=== PATIENT | male | born 1950 | race Caucasian/White ===

== ENCOUNTER 2021-06-07 06:18 | Inpatient (IN) | payer OTHER, SELFPAY ==
[2021-06-07] VITALS (7 sets, daily range): BP systolic 133–153; BP diastolic 62–82; PULSE 63–85; RESP 14–18; TEMP 36.6–37.4; O2SAT 96–99; BMI 33.7
--- NOTE | ~2021-06-07 | CT_ITS ---
EXAMINATION: CT abdomen pelvis w con INDICATION: Chest pain, elevated lipase TECHNIQUE: Computed tomographic images of the abdomen and pelvis were obtained after the administrati on of 100 cc of Omnipaque 350 intravenous contrast. The dose-length product (DLP) was 1119.72 mGy-cm. Automated exposure control and iterative reconstruction technique were employed. COMPARISON: None available FINDINGS: The lung bases are clear. The heart size is normal. The liver, gallbladder, and left adrena l gland are normal. There is a 2.1 cm soft tissue density mass in the right adrenal gland. Punctate c alcifications in an otherwise normal spleen likely represent healed granulomatous disease. There is s ubtle fat stranding near the head of the pancreas. Peripelvic cysts are noted in the left kidney. The kidneys are otherwise unremarkable. Colonic diverticulosis is present without evidence of diverticul itis. There is high density material in the otherwise normal appendix. No pathologically enlarged abd ominal or pelvic lymph nodes are identified. There is no free intraperitoneal gas or evidence of lauern l obstruction. There is moderate lumbar spondylosis. There is a small fat-containing umbilical hernia . IMPRESSION: 1. Findings consistent with retained, likely interstitial edematous. 2. 2.1 cm mass of the right adrenal gland. No prior imaging is currently available for comparison. Fo llow-up with nonemergent adrenal protocol CT is recommended. Reviewed, dictated and finalized at location A. IMPRESSION: 1. Findings consistent with retained, likely interstitial edematous. 2. 2.1 cm mass of the right adrenal gland. No prior imaging is currently availa ble for comparison. Follow-up with nonemergent adrenal protocol CT is recommend ed.
--- NOTE | ~2021-06-07 | US_ITS ---
EXAMINATION: US abdomen limited DATE: 06/07/2021 14:10 INDICATION: Right upper quadrant pain TECHNIQUE: Multiple grayscale and Doppler ultrasound images of the abdomen were obtained. COMPARISON: None available FINDINGS: Bowel gas obscures visualization of the pancreas. The liver is normal with normal echogenic ity and echotexture. No surface nodularity. Normal hepatopetal flow in the main portal vein. The gall bladder is normal with no abnormal wall thickening, pericholecystic fluid or stones. The normal commo n bile duct measures 5 mm. There was no sonographic Roblero sign. IMPRESSION: 1. Normal sonographic study of the gallbladder. Reviewed, dictated and finalized at location A.
--- NOTE | ~2021-06-07 | XR_ITS ---
EXAMINATION: XR chest 2V DATE: 06/07/2021 06:36 INDICATION: Chest pain TECHNIQUE: PA and lateral views of the chest are obtained. COMPARISON: 01/27/2013 FINDINGS: The lungs are free of acute opacities. There is no pleural effusion or pneumothorax. The ca rdiomediastinal silhouette is normal. There is moderate thoracic spondylosis. IMPRESSION: 1. No acute cardiopulmonary abnormality. Reviewed, dictated and finalized at location A.
--- NOTE | 2021-06-07 06:23 | ECG_ITS ---
Measurements Intervals [place] Rate: 77 P: 51 WV: 156 QRS: 39 QRSD: 97 T: 45 QT: 372 QTc: 423 Interpretive Statements SINUS RHYTHM NORMAL ECG NO PREVIOUS ECG AVAILABLE FOR COMPARISON Electronically Signed On 06-07-2021 15:46:06 CDT by Robert Blanton M.D.
[2021-06-07 06:51] LABS: Basophils Absolute Auto 0.1 K/mm3 (0.0-0.1); Basophils Percent Auto 0.4 % (0.2-1.2); Eosinophils Absolute Auto 0.1 K/mm3 (0-0.3); Hemoglobin 16.5 g/dL (14.0-18.0); Immature Granulocyte Absolute 0.02 K/mm3 (0.00-0.031); Immature Granulocyte Percent A 0.2 % (0-0.5); Lymphocytes Absolute Auto 1.55 K/mm3 (0.9-3.2); Lymphocytes Percent Auto 12.3 % (18.3-44.2); Mean Corpuscular HGB Conc 35.9 g/dl (32-36); Mean Corpuscular Hemoglobin 33.2 pg (26-34); Mean Corpuscular Volume 92.6 fl (80-100); Mean Platelet Volume 9.3 fl (7.4-10.4); Monocytes Absolute Auto 0.9 K/mm3 (0.1-0.6); Monocytes Percent Auto 6.8 % (2.6-8.5); Neutrophils Percent Auto 79.3 % (45.5-73.1); Platelet Count Result 198 k/mm3 (150-375); Red Blood Count 4.97 M/mm3 (4.6-6.20); Red Cell Distribution Width 12.3 % (11.5-14.5); White Blood Count 12.6 K/mm3 (4.5-10.0)
[2021-06-07] MEDS: ASPIRIN 81 MG CHEWABLE TABLET 324 MG PO (06:57)
[2021-06-07 07:00] LABS: Alanine Aminotransferase 24 U/L (4-50); Albumin Level 4.4 g/dL (3.5-5.1); Alkaline Phosphatase 55 U/L (38-126); Anion Gap 8 mmol/L (8-16); Aspartate Amino Transferase 29 U/L (17-59); Bilirubin,Total 0.9 mg/dL (0.2-1.3); Blood Urea Nitrogen 18 mg/dL (9-20); Calcium 8.9 mg/dL (8.4-10.2); Carbon Dioxide 26 mmol/L (22-30); Chloride 100 mmol/L (98-107); Estimated CRCL calculation 82 ml/min; Estimated Glomerular Filt Rate > 60; Glucose 125 mg/dL (65-110); Lipase 456 U/L (23-300); Potassium 4.1 mmol/L (3.4-5.0); Sodium 134 mmol/L (137-145)
[2021-06-07 07:07] LABS: Prothrombin Time 13.2 Seconds (11.1-14.7)
[2021-06-07 07:08] LABS: Partial Thromboplastin Time 27.5 SECONDS (22.3-36.8)
[2021-06-07 07:11] LABS: Troponin I < 0.012 ng/mL (0.000-0.034)
--- NOTE | 2021-06-07 08:07 | ED.CHESTPAIN ---
HPI - Chest Pain General Chief Complaint: Chest Pain Stated Complaint: Chest pain Time Seen by Provider: 06/07/21 07:01 Source: patient and RN notes reviewed Mode of arrival: ambulatory Limitations: no limitations History of Present Illness HPI narrative: This is a 71 year old male with history of hypertension who presents for evaluation of midsternal chest pain. He states he has been having intermittent nonradiating chest pressure since last night. He states his pressure seems to resolve with sitting up. He assumes it was due to GERD so he has been taking Tums. His pain did not resolve so he came to ER. He reports clamminess but denies nausea, vomiting, shortness of breath, cough or fever. He denies symptoms worsen with exertion. His chest pressure has currently resolved and he states he last felt pain 30 minutes ago. He denies cardiac history. Related Data Home Medications Medication Instructions Recorded Confirmed metoprolol succinate 50 mg PO DAILY 06/07/21 06/07/21 multivitamin [A To Z Multivitamin] 1 tablet PO DAILY 06/07/21 06/07/21 Allergies Allergy/AdvReac Type Severity Reaction Status Date / Time No Known Allergies Allergy Unknown Verified 06/07/21 10:12 Review of Systems Review of Systems: All systems reviewed & are unremarkable except as noted in HPI and below Constitutional: Constitutional: Denies chills and Denies fever(s) ENT: Denies nasal congestion and Denies sore throat Cardiovascular: Cardiovascular: Reports chest pain, Denies rapid heart rate and Denies radiating jaw, neck or arm pain Respiratory: Respiratory: Denies cough and Denies dyspnea Gastrointestinal: Gastrointestinal: Denies abdominal pain, Denies diarrhea, Denies nausea and Denies vomiting [facility] Past Medical History Medical History (Updated 06/07/21 @ 18:12 by Tana Espinosa MD) Cholesteatoma GERD (gastroesophageal reflux disease) Hypertension Surgical History Surgical History No pertinent past surgical history Social History Social History (Updated 06/07/21 @ 12:28 by VINI Chan) Social History: patient lives at home with his Pippa who will be his surrogate. He wishes to be a full code at this time thank currently have 1 dog in for outside cats. Smoking status: Never smoker Second hand tobacco smoke exposure: No Alcohol intake: current Drinks per week: 10 Alcohol use details: drinks socially Substance use: never Living arrangements: with family Occupation/Education: retired Additional occupation/education comments: [employer] Worker of [employer] Gender identity (if verbalized by the patient): Male Sexual Orientation (if Verbalized by the Patient): Straight or Heterosexual Spiritual care concerns: No Agree to blood products: Yes Exam Const: General: no acute distress and alert Orientation/consciousness: patient oriented x3 Eyes: EOM: EOMs intact bilaterally Resp: Effort & Inspection: normal respiratory effort and no retractions Auscultation: clear to auscultation bilaterally Cardio: Rate: regular rate Rhythm: regular rhythm Heart sounds: no murmurs GI: GI Palp: Yes Soft to palpation, No Tenderness to palpation present (GI) and No Guarding due to palpation present (GI) Auscultation: normal bowel sounds Neuro: General: patient oriented x3, moves all extremities and CN's II-XI intact bilaterally Extrem: General: normal to inspection Psych: Mental Status: mental status grossly normal Affect: normal affect Course Reevaluation(s) Reevaluation #1: I Discussed with patient that labs and CT are consistent with acute pancreatitis. He understands he will be admitted. Date: 06/07/21 Time: 09:30 Consultations Consultation #1: I Discussed case with Corby JASSO who accepts patient to hospitalist service for pancreatitis Date: 06/07/21 Time: 09:55 Vital Signs Vital signs: Faye
[2021-06-07 10:11] LABS: Troponin I < 0.012 ng/mL (0.000-0.034)
[2021-06-07] MEDS: SODIUM CHLORIDE 0.9% IV 1,000 ML 125 ML IV CONT ×2 (10:12→21:23)
--- NOTE | 2021-06-07 12:10 | PM.IMHP ---
H&P: HPI History of Present Illness Date/Time: 06/07/21 12:10 Chief Complaint: epigastric pain Narrative: patient is a 71-year-old male with a past medical history of GERD, hypertension who presented to the ED with complaints of epigastric pain. Patient stated that it started this morning and was accompanied with sweats. Patient stated he was unable to get comfortable and the pain was off and on. Patient also stated that a few days ago he had issues with diarrhea and body aches and felt like he had the flu. Patient also states stated he has been tired and fatigued over the last few days as well. Patient describes the symptoms being chest pain with most of it being does have regressed region. He denies any radiation. He denies any shortness of breath, palpitations, fevers, chills, diarrhea, constipation, headaches, lightheadedness, dizziness. he did state that he is little nauseous at times. Patient also stated that he did try to take times however this helped a little along with some belching. Lipase was noted to be elevated at 456. Patient also states that he drinks about 2 beers a day. Patient is being admitted to the hospital service under observation Review of Systems Review of Systems: All systems reviewed & are unremarkable except as noted in HPI and below PMFSH Past Medical History Medical History (Updated 06/07/21 @ 12:32 by VINI Chan) Cholesteatoma GERD (gastroesophageal reflux disease) Hypertension Surgical History Surgical History No pertinent past surgical history Social History Social History (Updated 06/07/21 @ 12:28 by VINI Chan) Social History: patient lives at home with his Pippa who will be his surrogate. He wishes to be a full code at this time thank currently have 1 dog in for outside cats. Smoking status: Never smoker Second hand tobacco smoke exposure: No Alcohol intake: current Drinks per week: 10 Alcohol use details: drinks socially Substance use: never Living arrangements: with family Occupation/Education: retired Additional occupation/education comments: [employer] of [employer] Gender identity (if verbalized by the patient): Male Sexual Orientation (if Verbalized by the Patient): Straight or Heterosexual Spiritual care concerns: No Agree to blood products: Yes Meds Home Medications and Allergies Home Medications Medication Instructions Recorded Confirmed Type metoprolol succinate 50 mg PO DAILY 06/07/21 06/07/21 History multivitamin [A To Z Multivitamin] 1 tablet PO DAILY 06/07/21 06/07/21 History Allergies Allergy/AdvReac Type Severity Reaction Status Date / Time No Known Allergies Allergy Unknown Verified 06/07/21 10:12 Vital Signs Vital Signs - 24 hr 06/07/21 06:34 06/07/21 08:00 06/07/21 10:12 Temperature 98.6 F Pulse Rate 85 68 64 Respiratory Rate 18 18 18 Blood Pressure 152/75 H 133/77 148/70 H Pulse Oximetry 96 98 97 06/07/21 11:30 Temperature 97.8 F Pulse Rate 67 Respiratory Rate 14 Blood Pressure 134/70 Pulse Oximetry 97 Exam Const: General: cooperative, healthy appearing, no acute distress, well developed, alert and awake Nutritional Appearance: well nourished Orientation/consciousness: patient oriented x3 Limitations: no limitations HENMT: Head: normal to inspection Ears: hearing grossly normal bilaterally General nose exam: Normal external nose present Mouth: Yes Normal oral and palatal mucosa present, Yes lip normal and Yes tongue normal Teeth and gingiva: abnormal tooth and associated gingiva and poor dentition Eyes: General: appearance normal, both eyes and all related structures Neck: Neck: normal visual inspection, full ROM, trachea midline and supple Chest: Chest palpation & inspection: normal inspection of the chest Resp: Effort & Inspection: normal respiratory effort and able t
[2021-06-07] MEDS: METOPROLOL SUCCINATE EXT REL 50 MG TABCR PO (13:05)
--- NOTE | 2021-06-07 13:59 | ADMGEN ---
This patient, Carlos Lott, was admitted to [facility] Room 309-01. Patient/family oriented to hospital policies and general routines including ID bracelet, bed and alarms, visiting hours, pain management, procedures, bathroom and other care routines, personal items, smoking policy, room service/diet, and visiting hours. Information on how to activate the Rapid Response Team has been discussed. Patient/Family are encouraged to report perceived risks to care and to ask questions if they do not understand what they are told or what they should do.
[2021-06-07 14:14] LABS: Troponin I < 0.012 ng/mL (0.000-0.034)
[2021-06-07] MEDS: MORPHINE SULFATE (*CRX) 4 MG/ML INJ IV PUSH (17:35)
[2021-06-07] MEDS: ONDANSETRON INJ 4 MG/2 ML VIAL IV PUSH (17:38)
[2021-06-07] MEDS: FAMOTIDINE 20 MG/2 ML VIAL IV PUSH (21:23)
[2021-06-08] MEDS: SODIUM CHLORIDE 0.9% IV 1,000 ML 125 ML IV CONT ×3 (05:11→20:17)
[2021-06-08 06:00] VITALS: BP 134/73; PULSE 62; RESP 18; TEMP 37; O2SAT 97
[2021-06-08 06:21] LABS: Basophils Absolute Auto 0.1 K/mm3 (0.0-0.1); Basophils Percent Auto 0.5 % (0.2-1.2); Eosinophils Absolute Auto 0.4 K/mm3 (0-0.3); Eosinophils Percent Auto 4.5 % (0-4.4); Hematocrit 40.9 % (42.0-52.0); Hemoglobin 14.4 g/dL (14.0-18.0); Immature Granulocyte Absolute 0.02 K/mm3 (0.00-0.031); Immature Granulocyte Percent A 0.2 % (0-0.5); Lymphocytes Absolute Auto 1.87 K/mm3 (0.9-3.2); Mean Corpuscular HGB Conc 35.2 g/dl (32-36); Mean Corpuscular Hemoglobin 33.3 pg (26-34); Mean Corpuscular Volume 94.7 fl (80-100); Mean Platelet Volume 9.4 fl (7.4-10.4); Monocytes Absolute Auto 0.8 K/mm3 (0.1-0.6); Monocytes Percent Auto 8.1 % (2.6-8.5); Neutrophils Absolute Auto 6.7 K/mm3 (1.3-6.7); Neutrophils Percent Auto 67.7 % (45.5-73.1); Platelet Count Result 181 k/mm3 (150-375); Red Blood Count 4.32 M/mm3 (4.6-6.20); Red Cell Distribution Width 12.7 % (11.5-14.5); White Blood Count 9.9 K/mm3 (4.5-10.0)
[2021-06-08 06:43] LABS: Alanine Aminotransferase 18 U/L (4-50); Albumin Level 3.5 g/dL (3.5-5.1); Alkaline Phosphatase 48 U/L (38-126); Anion Gap 4 mmol/L (8-16); Aspartate Amino Transferase 23 U/L (17-59); Bilirubin,Total 0.9 mg/dL (0.2-1.3); Blood Urea Nitrogen 11 mg/dL (9-20); Carbon Dioxide 29 mmol/L (22-30); Chloride 102 mmol/L (98-107); Estimated CRCL calculation 81 ml/min; Estimated Glomerular Filt Rate > 60; Glucose 92 mg/dL (65-110); Lipase 552 U/L (23-300); Magnesium 1.9 mg/dL (1.6-2.3); Potassium 4.2 mmol/L (3.4-5.0); Sodium 135 mmol/L (137-145)
--- NOTE | 2021-06-08 07:59 | PM.IMPN ---
Progress Note: A&P Assessment and Plan (1) Acute pancreatitis: Code(s): K85.90 - Acute pancreatitis without necrosis or infection, unspecified Status: Acute Assessment and Plan: Patient is hemodynamically stable today, lipase has increased by 52 from 456 yesterday. No evidence of transaminitis. Ultrasound gallbladder was normal, CT abdomen and pelvis showed fat stranding near the head of the pancreas. Patient is receiving IV fluid resuscitation and being kept NPO. Morphine and Tylenol on board for pain control at this time. -Lipid panel -Continue IV fluids at 125 mL/hour -Keep NPO for now, will continue to assess symptoms. Will progress to clear liquids was able to tolerate. (2) Atypical chest pain: Code(s): R07.89 - Other chest pain Status: Acute Assessment and Plan: Chest pain workup included troponin x3, all within normal limits, EKG, which showed normal sinus rhythm, and chest x-ray which showed no cardiopulmonary abnormality. -continue to monitor for any additional chest pain -vital signs q.8 hours (3) Adrenal mass: Code(s): E27.8 - Other specified disorders of adrenal gland Status: Acute Assessment and Plan: CT abdomen pelvis showed 2.1 cm mass in the right adrenal gland. - Follow-up with PCP for adrenal protocol CT is recommended (4) Hypertension: Code(s): I10 - Essential (primary) hypertension Status: Acute Assessment and Plan: He has been normotensive during his stay. -Will hold patient's home metoprolol until we advance his diet, will assess his status today. (5) DVT prophylaxis: Code(s): Z29.9 - Encounter for prophylactic measures, unspecified Status: Acute Assessment and Plan: SCDs. Subjective Date/time seen: 06/08/21 07:59 Objective Data Vital Signs Vital Signs: Vital Signs - 24 hr 06/07/21 08:00 06/07/21 10:12 06/07/21 11:30 Temperature 97.8 F Pulse Rate 68 64 67 Respiratory Rate 18 18 14 Blood Pressure 133/77 148/70 H 134/70 Pulse Oximetry 98 97 97 06/07/21 13:05 06/07/21 13:20 06/07/21 22:00 Temperature 98.1 F 99.3 F Pulse Rate 80 65 63 Respiratory Rate 16 16 Blood Pressure 139/62 153/82 H Pulse Oximetry 99 96 06/08/21 06:00 Temperature 98.6 F Pulse Rate 62 Respiratory Rate 18 Blood Pressure 134/73 Pulse Oximetry 97 Intake/Output Intake/Output: Intake & Output 06/05/21 06/06/21 06/07/21 06/08/21 23:59 23:59 23:59 23:59 Intake Total 1500 1520 Output Total 280 Balance 1220 1520 Meds/Results Medications: Active Medications Generic Name Dose Route Start Last Admin Trade Name Freq PRN Reason Stop Dose Admin Famotidine 20 mg 06/07/21 21:00 06/07/21 21:23 Famotidine 20 Mg/2 Ml Vial IV PUSH 20 mg Q12HR ROYAL Administration Acetaminophen 1,000 mg in 100 mls @ 400 mls/hr 06/07/21 09:59 Ofirmev 1,000 Mg Ivpb IVPB 06/08/21 09:58 Q6H PRN Mild Pain (1-3) or Fever Sodium Chloride 1,000 mls @ 125 mls/hr 06/07/21 10:00 06/08/21 05:11 Normal Saline Iv IV CONT 125 mls/hr .Q8H ROYAL Administration Metoprolol Succinate 50 mg 06/07/21 12:15 06/07/21 13:05 Metoprolol Succinate Ext Rel 50 Mg Tabcr PO 50 mg DAILY ROYAL Administration Morphine Sulfate 4 mg 06/07/21 09:59 06/07/21 17:35 Morphine Sulfate (*Crx) 4 Mg/Ml Inj IV PUSH 4 mg Q2H PRN Administration Pain Rated 7-10 Multivitamins Therapeutic 1 tablet 06/07/21 12:15 06/07/21 13:05 Multivitamins Therapeutic Tab (*Bkc) PO Not Given DAILY ROYAL Ondansetron HCl 4 mg 06/07/21 09:59 06/07/21 17:38 Ondansetron Inj 4 Mg/2 Ml Vial IV PUSH 4 mg Q4H PRN Administration Nausea Radiology Results: ITS Impressions Chest X-Ray 06/07/21 07:03 IMPRESSION: 1. No acute cardiopulmonary abnormality. Abdomen/Pelvis CT 06/07/21 08:34 IMPRESSION: 1. Findings consistent with retained, likely interstitia
[2021-06-08 08:05] LABS: Cholesterol 156 mg/dL (0-200); HDL Direct 44 mg/dL; Triglycerides 56 mg/dL (<150)
[2021-06-08 08:15] LABS: LDL Cholesterol Direct 80 mg/dL
[2021-06-08] MEDS: FAMOTIDINE 20 MG/2 ML VIAL IV PUSH ×2 (08:32→20:17)
--- NOTE | 2021-06-08 12:51 | PM.IMPN ---
Progress Note: A&P Assessment and Plan (1) Acute pancreatitis: Code(s): K85.90 - Acute pancreatitis without necrosis or infection, unspecified Status: Acute Assessment and Plan: Patient is hemodynamically stable today, lipase has increased by 52 from 456 yesterday. No evidence of transaminitis. Ultrasound gallbladder was normal, CT abdomen and pelvis showed fat stranding near the head of the pancreas. Patient is receiving IV fluid resuscitation and being kept NPO. Morphine and Tylenol on board for pain control at this time, though he has had not had to use it since yesterday. Patient is clinically well-appearing, and does not feel ill today. Vital signs are stable, and his epigastric pain has resolved. He is feeling hungry. -Lipid panel obtained -Continue IV fluids at 125 mL/hour -initiate clear liquids for dinner today, and advance diet as tolerated tomorrow. -repeat a.m. labs -Continue pantoprazole for reflux (2) Atypical chest pain: Code(s): R07.89 - Other chest pain Status: Acute Assessment and Plan: Chest pain workup included troponin x3, all within normal limits, EKG, which showed normal sinus rhythm, and chest x-ray which showed no cardiopulmonary abnormality. No additional chest pain today. -continue to monitor for any additional chest pain -vital signs q.8 hours (3) Adrenal mass: Code(s): E27.8 - Other specified disorders of adrenal gland Status: Acute Assessment and Plan: CT abdomen pelvis showed 2.1 cm mass in the right adrenal gland. - Follow-up with PCP for adrenal protocol CT is recommended (4) Hypertension: Code(s): I10 - Essential (primary) hypertension Status: Acute Assessment and Plan: He has been normotensive during his stay. -restart patient on his home metoprolol (5) DVT prophylaxis: Code(s): Z29.9 - Encounter for prophylactic measures, unspecified Status: Acute Assessment and Plan: SCDs. Patient is also ambulating independently around his room. Subjective Date/time seen: 06/08/21 12:51 71 year old very pleasant male with pmh of GERD and hypertension who presented to the ED with epigastric pain after mowing his lawn. He endorses having a GI flu with diarrhea and nausea over the past week. The three days preceeding his stay here, he enjoyed 3 beers with dinner, but did not and does not drink to excess. He and his , Pippa had questions regarding his ultrasound and prognosis, which I discussed with them. We discussed risk factors for pancreatitis and gradual increase in his oral intake while monitoring his lipase levels. He denies abdominal pain, fevers, chills, chest pain, nausea, vomiting, diarrhea, shortness of breath. He is having some reflux which he is receiving pantoprazole for here. He feels ready to eat and is a very active and cooperative participant in his recovery. Review of Systems Review of Systems: All systems reviewed & are unremarkable except as noted in HPI and below Exam Narrative: GENERAL APPEARANCE: Alert and oriented x 3, in no apparent distress. HEENT: PERRL, EOMI. Sclerae anicteric. Moist mucous membranes. NECK: Supple. No JVD or obvious carotid bruits. RESPIRATORY: Respirations are nonlabored. Breath sounds are equal and clear bilaterally. No wheezes, Rhonchi, or rales. CARDIOVASCULAR: Regular rate and rhythm with normal S1-S2. No murmurs, gallops, or rubs. GASTROINTESTINAL: Soft, flat, and benign. No mass, tenderness, guarding, or rebound. No organomegaly or hernia. Bowel sounds are present. SKIN: Warm, dry, well perfused. Good turgor. No lesions, nodules, or rashes noted. Warm and dry. No rash or lesions on limited exam. EXTREMITIES: No cyanosis, clubbing, or edema. Radial and pedal pulses intact. NEUROLOGICAL: Alert. Cranial nerves 2-12 are grossly intact. No gross focal deficits to casual conversation. PSYCHIATRIC: Plea
[2021-06-08 13:23] VITALS: O2SAT 97
[2021-06-08 14:00] VITALS: BP 139/75; PULSE 65; RESP 16; TEMP 36.4; O2SAT 97
[2021-06-08 22:00] VITALS: BP 128/73; PULSE 58; RESP 20; TEMP 37.1; O2SAT 98
[2021-06-09 06:00] VITALS: BP 129/77; PULSE 64; RESP 18; TEMP 37.1; O2SAT 97
[2021-06-09] MEDS: SODIUM CHLORIDE 0.9% IV 1,000 ML 125 ML IV CONT (08:42)
[2021-06-09 08:44] VITALS: PULSE 64
[2021-06-09] MEDS: FAMOTIDINE 20 MG/2 ML VIAL IV PUSH (08:44)
[2021-06-09] MEDS: METOPROLOL SUCCINATE EXT REL 50 MG TABCR PO (08:44)
[2021-06-09 10:02] LABS: Basophils Percent Auto 0.6 % (0.2-1.2); Eosinophils Absolute Auto 0.4 K/mm3 (0-0.3); Hematocrit 44.1 % (42.0-52.0); Hemoglobin 15.3 g/dL (14.0-18.0); Immature Granulocyte Absolute 0.02 K/mm3 (0.00-0.031); Immature Granulocyte Percent A 0.3 % (0-0.5); Lymphocytes Absolute Auto 1.28 K/mm3 (0.9-3.2); Lymphocytes Percent Auto 19.8 % (18.3-44.2); Mean Corpuscular HGB Conc 34.7 g/dl (32-36); Mean Corpuscular Hemoglobin 33.8 pg (26-34); Mean Corpuscular Volume 97.4 fl (80-100); Mean Platelet Volume 9.4 fl (7.4-10.4); Monocytes Absolute Auto 0.5 K/mm3 (0.1-0.6); Neutrophils Absolute Auto 4.3 K/mm3 (1.3-6.7); Neutrophils Percent Auto 66.3 % (45.5-73.1); Platelet Count Result 212 k/mm3 (150-375); Red Blood Count 4.53 M/mm3 (4.6-6.20); Red Cell Distribution Width 12.7 % (11.5-14.5); White Blood Count 6.5 K/mm3 (4.5-10.0)
[2021-06-09 10:12] LABS: Alanine Aminotransferase 19 U/L (4-50); Albumin Level 3.9 g/dL (3.5-5.1); Alkaline Phosphatase 50 U/L (38-126); Anion Gap 7 mmol/L (8-16); Aspartate Amino Transferase 26 U/L (17-59); Bilirubin,Total 0.6 mg/dL (0.2-1.3); Blood Urea Nitrogen 10 mg/dL (9-20); Calcium 8.4 mg/dL (8.4-10.2); Carbon Dioxide 28 mmol/L (22-30); Chloride 101 mmol/L (98-107); Estimated CRCL calculation 90 ml/min; Estimated Glomerular Filt Rate > 60; Glucose 110 mg/dL (65-110); Lipase 206 U/L (23-300); Potassium 3.9 mmol/L (3.4-5.0); Sodium 136 mmol/L (137-145)
--- NOTE | 2021-06-09 12:28 | PM.DS ---
DS: Admitting Diagnosis Discharge Date 06/09/21 1400 Admitting Diagnosis Pancreatitis DS: Discharge Diagnosis Discharge Diagnosis (1) Acute pancreatitis: Code(s): K85.90 - Acute pancreatitis without necrosis or infection, unspecified Status: Acute Assessment and Plan: Patient was admitted with epigastric pain, nausea, and CT abdomen showing pancreatitis with fat stranding near the head of the pancreas. Patient is hemodynamically stable today, and lipase has returned to normal. Ultrasound of gallbladder was normal. No transaminitis. Patient had 3 beers to drink with dinner during the three days leading up to his admission, but denies other regular alcohol intake. Triglycerides were 56. He denies scorpion encounter. Likely idiopathic pancreatitis, which resolved after bowel rest and fluid resuscitation. Patient denies abdominal pain, nausea, vomiting, and tolerated his liquid diet well last night and this morning. VSS, normal physical exam today. Will advance to full, low fat diet for lunch. If patient tolerates, will discharge later this afternoon. Vital signs are stable, and his epigastric pain has resolved. IV fluids discontinued. Continue low fat diet upon discharge Take all medications as prescribed (2) Atypical chest pain: Code(s): R07.89 - Other chest pain Status: Acute Assessment and Plan: Chest pain workup included troponin x3, all within normal limits, EKG, which showed normal sinus rhythm, and chest x-ray which showed no cardiopulmonary abnormality. No additional chest pain during stay. Follow up with primary care as needed if you have any new or worsening chest pain, or return to the ER. (3) Adrenal mass: Code(s): E27.8 - Other specified disorders of adrenal gland Status: Acute Assessment and Plan: CT abdomen-pelvis showed incidental finding of 2.1 cm mass in the right adrenal gland. Follow-up with PCP in 2 weeks for an adrenal protocol CT is recommended (4) Hypertension: Code(s): I10 - Essential (primary) hypertension Status: Acute Assessment and Plan: He has been normotensive during his stay. Continue home metoprolol upon discharge (5) DVT prophylaxis: Code(s): Z29.9 - Encounter for prophylactic measures, unspecified Status: Acute Assessment and Plan: SCDs. Patient is also ambulating independently around his room. DS: Summary Hospital Course Reason for hospitalization: Pancreatitis Hospital Course: See above for full hospital cours.e Status at Discharge Overall status at discharge: patient is progressing back to baseline Time Spent with Patient Time attestation: Total time spent providing and/or coordinating discharge services: 35 mins Time spent: Greater than 30 minutes Exam Narrative: GENERAL APPEARANCE: Alert and oriented x 3, in no apparent distress. HEENT: PERRL, EOMI. Sclerae anicteric. Moist mucous membranes. NECK: Supple. No JVD or obvious carotid bruits. RESPIRATORY: Respirations are nonlabored. Breath sounds are equal and clear bilaterally. No wheezes, Rhonchi, or rales. CARDIOVASCULAR: Regular rate and rhythm with normal S1-S2. No murmurs, gallops, or rubs. GASTROINTESTINAL: Soft, flat, and benign. No mass, tenderness, guarding, or rebound. No organomegaly or hernia. Bowel sounds are present. SKIN: Warm, dry, well perfused. Good turgor. No lesions, nodules, or rashes noted. Warm and dry. No rash or lesions on limited exam. EXTREMITIES: No cyanosis, clubbing, or edema. Radial and pedal pulses intact. NEUROLOGICAL: Alert. Cranial nerves 2-12 are grossly intact. No gross focal deficits to casual conversation. PSYCHIATRIC: Pleasant and cooperative with normal mood and affect. DS: Data Data Completed and Pending Labs on day of discharge: Labs from last 24 hours 06/09/21 06/09/21 09:37 09:37 WBC 6.5 RBC 4.53 L
[2021-06-09 13:27] VITALS: BP 126/72; PULSE 66; RESP 18; TEMP 36.8; O2SAT 96
== END 2021-06-09 15:10 | disposition home or self-care (01) | DRG 440 ==
LOC: ANHED 07:36 → ANH3MEDSUR 10:33
PROVIDERS: Emergency Medicine; Admitting Provider Internal Medicine; Emergency Provider General Practice; Visit Provider Student in an Organized Health Care Education/Training Program
DX: K85.90 Acute pancreatitis without necrosis or infection, unspecified (principal); R07.89 Other chest pain; E27.8 Other specified disorders of adrenal gland; K21.9 Gastro-esophageal reflux disease without esophagitis; I10 Essential (primary) hypertension
CPT/HCPCS: 36415; 71046; 74177; 76705; 80053; 80061; 83690; 83735; 84484; 85025; 85610; 85730; 93005; 96360; 99285; A9270; G0378; J2270; J2405; J7030; Q9967